=== PATIENT | female | born 1960 | race African-American/Black ===

== ENCOUNTER 2020-01-19 11:22 | Observation (INO) ==
[2020-01-19] MEDS ORDERED: NS 1,000 ML IV PRN (11:42)
[2020-01-19 11:59] LABS: BASO# 0.03 X1000 (0.0-0.2); BASO% 0.3 % (0.0-0.8); EOS# 0.18 X1000 (0.0-0.7); EOS% 1.9 % (0.0-10.0); HEMATOCRIT 36.3 % (37.0-47.0); HEMOGLOBIN 11.9 g/dL (12.0-16.0); IMM GRAN# 0.01 X1000 (0.0-0.04); IMM GRAN% 0.1 % (0.0-0.5); LYMPH# 2.67 X1000 (1.2-3.4); LYMPH% 27.8 % (20.5-51.1); MCH 26.3 PG (27-31); MCHC 32.8 g/dL (33-37); MCV 80.1 FL (81-99); MONO# 0.52 X1000 (0.11-0.59); MONO% 5.4 % (1.7-9.3); MPV 12.2 FL (7.4-10.4); NEUT% 64.5 % (42.2-75.2); PLT 267 X1000 (130-400); RBC 4.53 XMIL (4.2-5.4); RDW 13.1 % (11.5-14.5); WBC 9.61 X1000 (4.8-10.8)
[2020-01-19 12:13] LABS: INR 0.9; PROTIME 12.6 Seconds (11.0-16.0)
[2020-01-19 12:14] LABS: PTT 23.7 Seconds (22.3-41.8)
--- NOTE | 2020-01-19 12:38 | Diag Imaging Result Doc PS360 ---
EXAM: CT HEAD W/O CONTRAST - 01/19/2020 HISTORY: altered mental status TECHNIQUE: CT head without contrast COMPARISON: 08/14/2019 FINDINGS: There is no evidence of intracranial hemorrhage, mass effect, midline shift, or hydrocephalus. There is stable slight ventricular asymmetry compatible congenital variant. There is no evidence of infarct, although acute infarcts may not be immediately visible. There is no evidence of skull fracture. Visualized portions of paranasal sinuses and mastoid air cells appear clear. There is incomplete bony union noted at the midline posterior arch of C1 which is stable and consistent with congenital variant/anomaly. IMPRESSION: No visible acute intracranial abnormality. No hemorrhage or mass effect. This exam was performed using automated exposure control, adjustment of mA or kV according to patient size, and/or use of iterative reconstruction technique. Electronically signed by Murali Cesar 01/19/2020 12:36 PM
[2020-01-19 14:45] LABS: URINE SOURCE CLEAN CATCH
[2020-01-19 14:47] LABS: BILIRUBIN URINE NEGATIVE (NEGATIVE); BLOOD URINE NEGATIVE (NEGATIVE); COLOR YELLOW; GLUCOSE URINE TRACE mg/dL (NEGATIVE); KETONE URINE NEGATIVE (NEGATIVE); LEUKOCYTES URINE NEGATIVE (NEGATIVE); NITRITE URINE NEGATIVE (NEGATIVE); PH URINE 5.5; PROTEIN URINE 50 mg/dL (NEGATIVE); SP GRAVITY URINE 1.014; TURBIDITY URINE CLEAR (CLEAR); UROBILINOGEN URINE NORMAL (NORMAL)
[2020-01-19 14:49] LABS: UR EPITHELIAL CELLS <10 /HPF (<10); URINE BACTERIA 4+ /HPF; URINE RBC <10 /HPF (<10); URINE WBC <10 /HPF (<10)
[2020-01-19] MEDS ORDERED: CATAPRES PO ONE (14:53)
[2020-01-19 14:56] LABS: AGAP 18; ALBUMIN 4.6 g/dL (3.5-5.0); ALKALINE PHOSPHATASE 77 U/L (32-104); BUN 17 mg/dL (8-22); CALCIUM 10.4 mg/dL (8.8-10.2); CHLORIDE 97 mmol/L (98-107); COSMO 281; CREATININE 0.9 mg/dL (0.5-0.9); ESTIMATED GFR > 60; GLUCOSE 272 mg/dL (70-104); GOT 17 U/L (10-30); GPT 13 U/L (10-36); POTASSIUM 4.6 mmol/L (3.5-5.1); SODIUM 135 mmol/L (136-145); TCO2 21 mmol/L (25-35); TOTAL PROTEIN 8.7 g/dL (6.3-8.3)
[2020-01-19 15:05] LABS: UR AMPHETAMINES QUAL NONE DETECTED (NONE DETECT); UR BARBITUATES QUAL NONE DETECTED (NONE DETECT); UR BENZODIAZEPIN QUAL NONE DETECTED (NONE DETECT); UR CANNABINOIDS QUAL NONE DETECTED (NONE DETECT); UR COCAINE QUAL NONE DETECTED (NONE DETECT); UR METHADONE QUAL NONE DETECTED (NONE DETECT); UR METHAMPHETAMINE QUAL NONE DETECTED (NONE DETECT); UR OPIATES QUAL NONE DETECTED (NONE DETECT); UR OXYCODONE QUAL NONE DETECTED (NONE DETECT); UR PCP QUAL NONE DETECTED (NONE DETECT); UR PROPOXYPHENE QUAL NONE DETECTED (NONE DETECT); UR TCA QUAL NONE DETECTED (NONE DETECT)
--- NOTE | 2020-01-19 15:46 | PROVIDER DOCUMENTATION ---
This chart was entered by Ayleen Green Scribmike, acting as scribe for Ny Osorio MD. HPI-General Adult - General Chief Complaint: B/P Problems Stated Complaint: BLOOD SUGAR, SENT BY SOIL SPECIALIST Time Seen by Provider: 01/19/20 11:37 Source: patient Allergies/Adverse Reactions: Patient Allergies Allergy/AdvReac Type Severity Reaction Status Date / Time No Known Allergies Allergy Verified 01/19/20 11:41 Home Medications: Home Medication List Medication Instructions Recorded Confirmed Last Taken Type Hydroxyzine [Atarax] 25 mg PO TID PRN PRN #30 tab 08/14/19 01/19/20 Unknown Rx Amlodipine Besylate/Benazepril 1 cap PO DAILY 01/19/20 01/19/20 Unknown History [Amlodipine-Benazepril 10-40 mg] Carvedilol 1 tab PO BID 01/19/20 01/19/20 Unknown History Metformin HCl 1 tab PO BID 01/19/20 01/19/20 Unknown History Pravastatin Sodium 1 tab PO QPM 01/19/20 01/19/20 Unknown History - History of Present Illness -Gen Adult Nature of Presenting Problems: Pt is a 59 yobf sent by supervisor electronics inspection to ED with c/o confusion and pain in right leg. Pt denies headache or chest pain. Pt has hx of diabetes and HTN. Pt is alert but slow to respond and nontoxic in appearance. Location of Pain/Injury: reports: lower extremity (right leg), other (confusion about recent events) Pain Radiation: reports: no radiation Quality of Pain: reports: dull Severity: reports: mild Onset/Duration: reports: abrupt, this morning Timing: reports: still present Context/Activities at Onset: reports: light activity Modifying Factors: improves with: nothing Associated Symptoms: denies: back/neck pain, chest pain, cough, dizziness, fever/chills, headaches, nausea, shortness of breath, syncope, weakness Similar Symptoms Previously?: No Recently seen or treated by another doctor?: No Review of Systems - Adult - REVIEW OF SYSTEMS - ADULT Constitutional: denies: chills, fever Eyes: reports: no symptoms reported Ears, Nose, Mouth & Throat: reports: no symptoms reported Cardiovascular: denies: chest pain, syncope Respiratory: denies: cough, shortness of breath Gastrointestinal: denies: diarrhea, nausea, vomiting Genitourinary: reports: no symptoms reported Musculoskeletal: reports: bone pain (right leg) Integumentary: reports: no symptoms reported Neurological: reports: other (confusion) Psychiatric: reports: no symptoms reported Endocrine: reports: no symptoms reported Hematologic/Lymphatic: reports: no symptoms reported Allergic/Immunologic: reports: no symptoms reported All Other Systems: Reviewed and Negative Past History - Adult - PAST MEDICAL HISTORY-ADULT Review of Records: reports: Old Records Reviewed, Nursing Assessment Review, Medications Reviewed, Social history reviewed & non-contributory. Major Childhood Illnesses: reports: denies history Cardiovascular: reports: HTN Respiratory: reports: denies history Gastrointestinal: reports: denies history Obstetrical/Gynecological: reports: denies history Genitourinary: reports: denies history Musculoskeletal: reports: denies history Neurological: reports: denies history Endocrine/Immune: reports: Diabetes Other Conditions: reports: denies history - PRIOR SURGERIES/PROCEDURES Surgical/Procedure History: reports: BTL - IMMUNIZATION STATUS Childhood Immunizations: See Nurse Assessment Flu Vaccine: See Nurse Assessment - FAMILY HISTORY Family History: reviewed, not pertinent - SOCIAL HISTORY Smoking: denies Substance Use: denies Living Situation: family Physical Exam-General - PHYSICAL EXAM-ADULT Initial Vital Signs Reviewed: Yes - CONSTITUTIONAL General Appearance: alert, no apparent distress, slow to respond - EYES Eyes: PERRL/EOMI, pink conjunctivae - HEAD, EARS, NOSE, MOUTH & THROAT HENMT: normocephalic/atraumatic, moist mucous membranes - NECK Neck: non-tender, full range of motion, supple - RESPIRATORY Respiratory: chest non-tender, lungs clear, normal breath sounds, no respiratory distress - CARDIOVASCULAR Cardiovascular: normal peripheral pulses, regular rate, rhythm - GASTROINTESTINAL (ABDOMEN) Abdominal Exam: non tender, soft - LYMPHATIC Lymphatic: no adenopathy - MUSCULOSKELETAL Back Exam: normal inspection, no CVA tenderness, no vertebral tenderness Extremity: normal range of motion, non-tender, normal gait, no pedal edema, no calf tenderness - SKIN Integumentary: normal color, normal turgor, warm/dry - PSYCHIATRIC Psych/Mental Status: normal thought content, normal thought process, oriented x 3 Progress - PLAN OF CARE/RESULTS Progress/Plan/Lab Results: Vital Signs - 8 hr 01/19/20 11:28 Temperature 98.1 F Pulse Rate 83 Respiratory Rate 20 Blood Pressure 194/67 O2 Sat by Pulse Oximetry 97 Laboratory Results - last 24 hr 01/19/20 11:28 POC Glucose 282 H Orders Category Date Time Status FSBS [Finger Stick Blood Sugar (ED)] DIRECTED Care 01/19/20 11:28 Active Result Diagrams: 01/19/20 11:53 01/19/20 14:14 - REASSESSMENT Reassessment #1 Time Reassessed: 15:36 Reassessment Comment: at bedside discussing POC - EKG 1 Time of EKG reading by physician:: 11:40 EKG Read and Signed by:: Ny Osorio EKG Interpretation (*Must complete 3 of following elements*): Abnormal Rate: 85 Rhythm: NSR [place]: normal QRS: normal Comments: Possible Anterior infarct, age undetermined - CT/MRI 1 CT Study: Head Impression: See EMR Report ([facility] - [address] [place] [address] [place], [place] [id number] [facility] - [address] [place] [id number] Department of Imaging Patient: PAULIE RICKS Date: 01/19/20MR#: [id number] : 1960DM Status: REG ERAcct#: [id number] Age/Sex: 59/FRoom/Bed: Loc: P.ED Ordering Physician: Ny Osorio MD Family Physician: Hernan Petty MD Reason for Procedure: altered mental status Signed EXAM: CT HEAD W/O CONTRAST - 01/19/2020 HISTORY: altered mental status TECHNIQUE: CT head without contrast COMPARISON: 08/14/2019 FINDINGS: There is no evidence of intracranial hemorrhage, mass effect, midline shift, or hydrocephalus. There is stable slight ventricular asymmetry compatible congenital variant. There is no evidence of infarct, although acute infarcts may not be immediately visible. There is no evidence of skull fracture. Visualized portions of paranasal sinuses and mastoid air cells appear clear. There is incomplete bony union noted at the midline posterior arch of C1 which is stable and consistent with congenital variant/anomaly. IMPRESSION: No visible acute intracranial abnormality. No hemorrhage or mass effect. This exam was performed using automated exposure control, adjustment of mA or kV according to patient size, and/or use of iterative reconstruction technique. Electronically signed by Murali Cesar 01/19/2020 12:36 PM 01/19/20 1236 Interpreting Physician: Murali Cesar MD Dictated Date/Time: 01/19/20 1230 cc: Ny Osorio MD; Hernan Petty MD) - CONSULTS/PCP/HOSPITALIST Notification #1 *Consult/PCP/Hospitalist*: Dr. Urieb Time Discussed: 15:40 Consult Disposition: Admit (for observation) Departure - Departure Date of Disposition Decision: 01/19/20 Time of Disposition Decision: 15:45 DIAGNOSIS: Altered mental status Disposition: ADMITTED INPATIENT 09 Certified Medical Emergency: Emergent Condition: Good Referrals and Follow-Ups: Hernan Petty MD [Primary Care Provider] - - Critical Care Note This patient required my direct & personal management of CC.: No Attestation - Physician/ YANA Attestation Patient care was provided by Advanced Practice Provider:: No The physician spent face to face time with patient:: Yes Advanced Practice Provider documentation review:: Supervising physician onsite and consulted in the evaluation and care of this patient. The physician did have a face to face encounter with the patient. This chart was documented by the indicated scribe, (Ayleen Green, Miguel) and accurately reflects the services I performed and decisions made by me, Ny Osoiro MD, as attested by the provider's signature.
[2020-01-19 15:59] LABS: CALCIUM 10.3 mg/dL (8.8-10.2); PHOSPHORUS 4.1 mg/dL (2.7-4.5)
[2020-01-19] MEDS ORDERED: ASPIRIN PO ONE (16:10)
--- NOTE | 2020-01-19 16:40 | HISTORY AND PHYSICAL ---
PRIMARY CARE PHYSICIAN: Dr. Petty. CHIEF COMPLAINT: Sent to the emergency room by her shipyard painting supervisor after she complained of confusion and pain in her right leg. 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 Was sent to the ER by her shipyard painting supervisor with complaints of confusion and pain in her right leg. She is alert and awake and is able to tell me her name, but unable to tell me her date of or where she is. She has some garbled speech at times, nonsensical at time. Denied any headache or chest pain. Workup showed on arrival a blood pressure of 194/67. CT of the head showed no visible acute intracranial abnormality. No hemorrhage or mass effect. Laboratory data was fairly unremarkable. Urine drug screen was negative. So we are going to admit her for further evaluation and treatment. PAST MEDICAL HISTORY: Hypertension, hyperlipidemia, diabetes, history of a TIA. PAST SURGICAL HISTORY: Bilateral tubal ligation. SOCIAL HISTORY: She resides with family. Again, she works in the dietary department here at [employer] and denies any tobacco, alcohol, or illicit drug use. ALLERGIES: She has no known drug allergies. HOME MEDICATIONS: We will obtain a current list, reconcile, review, and restart as appropriate. We will place an order for nursing to update and confirm home medications. LABORATORY DATA: Showed a white blood cell count of 9.61, hemoglobin 11.9, hematocrit 36.3, platelets 267,000. PT and INR of 12.6 and 0.90. Sodium of 135, potassium 4.6, chloride 97, CO2 21, BUN of 17, creatinine 0.9, glucose 272, calcium of 10.3. Urinalysis was negative except for 4+ bacteria. Urine drug screen was negative. CT of the head showed no visible acute intracranial abnormality. No hemorrhage or mass effect. REVIEW OF SYSTEMS: Unable to obtain a clear review of systems. She was sent by her house furnishings supervisor due to confusion and some complaints earlier pain in her right leg. Denied headache, chest pain on arrival. PHYSICAL EXAMINATION: VITAL SIGNS: On arrival she had a temperature of 98.1 degrees, pulse 83, respirations 20, blood pressure 194/67. Currently blood pressure is down to 155/78. She is saturating 97% on room air. GENERAL: This is a 59-year-old female lying in the bed, unable to answer all questions appropriately. She has some garbled speech, nonsensical at times. HENT: Normocephalic, atraumatic. Normal ENT inspection. Oropharynx and nares are clear. EYES: Pupils are equal, round, reactive to light and accommodation. Extraocular movements are intact. NECK: Normal inspection. Normal range of motion. LUNGS: Clear to auscultation bilaterally with equal lung expansion and chest wall movement. HEART: Regular rate and rhythm. No murmurs, rubs, or gallops. ABDOMEN: Soft, nontender, nondistended. Bowel sounds are present x4 quadrants. MUSCULOSKELETAL: Within normal limits. Normal inspection. Normal range of motion. NEUROLOGICAL: Unable to perform a complete neuro exam due to patient's inability to participate, but does not appear to have any facial drooping or motor weakness at this time. ASSESSMENT: 1. Altered mental status. 2. Transient ischemic attack versus cerebrovascular accident. 3. Hypertension. 4. Diabetes type 2. PLAN: She will be admitted to the medical unit, placed on telemetry. We will hold her n.p.o. at this time, until she has a bedside swallowing study. Again, we do not see any facial drooping, but she does have some nonsensical speech, garbled at times. We will place on pattern blood sugars with sliding scale insulin. In the a.m. we will obtain an MRI of the brain without contrast, an echocardiogram, carotid Doppler. Will continue home medications once identified as appropriate. She does need to receive an aspirin 81 mg p.o. x1 now and continue that daily. We will check a CBC, BMP, and a lipid profile in the a.m. We are going to allow for little permissive hypertension at this time in case this was a stroke and will evaluate in the a.m. Further orders after seen by attending. Dictated by CLAU Diaz for Isaac Ca MD Addendum: Patient seen and examined by myself. Agree with CLAU note. It reflects my assessment and plan. Patient is being admitted to hospital for encephalopathy. Considering her acute onset I am still suspecting an stroke so will order an MRI brain for tomorrow. Will do neurochecks q4hrs and monitor patient closely. Will check HbA1c as well. cc: CLAU Diaz MD Dr. Reddy MTDD
[2020-01-19] MEDS ORDERED: ZOFRAN IV PRN (17:16)
[2020-01-19] MEDS ORDERED: ATARAX PO PRN (17:16)
--- NOTE | 2020-01-19 17:32 | EKG Report ---
Test Performed on : 01/19/2020 11:37:27 AM Test Reason : MD ORDER Blood Pressure : / mmHG Vent. Rate : 085 BPM Atrial Rate : 085 BPM P-R Int : 150 ms QRS Dur : 064 ms QT Int : 366 ms P-R-T Axes : 075 026 022 degrees QTc Int : 435 ms Normal sinus rhythm. Possible Anterior infarct (cited on or before 14-AUG-2019) Abnormal ECG When compared with ECG of 14-AUG-2019 18:41, No significant change was found Unconfirmed Result
[2020-01-19] MEDS: COREG PO SCH (20:30)
[2020-01-19] MEDS: HUMALOG SUBQ SCH (20:50)
[2020-01-19] MEDS ORDERED: PRAVACHOL PO SCH (21:00)
[2020-01-20 05:32] LABS: AGAP 11; BUN 13 mg/dL (8-22); CALCIUM 9.4 mg/dL (8.8-10.2); CHLORIDE 104 mmol/L (98-107); COSMO 285; CREATININE 0.7 mg/dL (0.5-0.9); ESTIMATED GFR > 60; GLUCOSE 189 mg/dL (70-104); POTASSIUM 4.1 mmol/L (3.5-5.1); SODIUM 140 mmol/L (136-145); TCO2 26 mmol/L (25-35)
[2020-01-20] MEDS: HUMALOG SUBQ SCH ×2 (06:14→12:19)
[2020-01-20] MEDS ORDERED: LOTREL 5/20 MG PO SCH (09:00)
[2020-01-20] MEDS: LOTENSIN PO SCH (09:09)
[2020-01-20] MEDS: NORVASC PO SCH (09:09)
[2020-01-20] MEDS: ASPIRIN PO SCH (09:09)
[2020-01-20] MEDS: COREG PO SCH ×2 (09:09→20:24)
--- NOTE | 2020-01-20 10:52 | Diag Imaging Result Doc PS360 ---
EXAM: MRI BRAIN W/O CONTRAST - 01/19/2020 HISTORY: TIA vs CVA TECHNIQUE: MRI brain without contrast. No contrast administered per request the referring provider. COMPARISON: 01/19/2020 CT head without contrast FINDINGS: There is a 1.4 cm area of restricted diffusion at the left anterior thalamus region on the diffusion-weighted images. This is consistent with acute lacunar infarct. There are no other areas of restricted diffusion. There are mild chronic microvascular ischemic changes. There is no evidence of intracranial hemorrhage, mass effect, midline shift, or hydrocephalus. IMPRESSION: 1.4 cm acute lacunar infarct at left anterior thalamus region. This report was discussed with Elle Kwon on 01/20/2020 at 10:48 AM and was readback. Electronically signed by Murali Cesar 01/20/2020 10:49 AM
--- NOTE | 2020-01-20 13:16 | PROGRESS NOTE ---
DATE: 01/20/2020 SUBJECTIVE: The patient reports feeling fine. Yesterday, she was having some headaches, but today, she is feeling much better, a little bit more oriented today. OBJECTIVE: Vital Signs: Temperature 98.1 degrees, heart rate 70, respiratory rate 18, blood pressure 121/66, O2 saturation 99% on room air. General: This is a 59-year-old, female, lying in bed in no acute distress. Cardiovascular: S1, S2 heard. No murmurs, gallops, or rubs. Regular rate and rhythm. Respiratory: Clear bilaterally to auscultation. No work of breathing or using accessory muscles. Abdomen: Soft, nontender to palpation. Bowel sounds present. No organomegaly. Extremities: No clubbing, cyanosis, or edema. Peripheral pulses present in both legs. Neurologic: Alert and oriented x3. Moves all 4 extremities. LABORATORY DATA: BMP today is okay with glucose of 189. Cholesterol 223. ASSESSMENT: 1. Acute lacunar stroke. 2. Hypertension. 3. Diabetes mellitus type 2. PLAN: The patient came to the hospital because she was confused, and we found out that she has a lacunar stroke. This is basically because of noncompliance that the patient recognized, so the patient definitely is strongly encouraged to take her medication as she is supposed to. Will change pravastatin to atorvastatin. Will continue with sliding scale insulin for diabetes, and work on physical therapy and occupational therapy. If the patient is feeling better and not requiring any major physical therapy recommendation, will discharge this patient home tomorrow. cc: Isaac Ca MD
[2020-01-20 14:11] LABS: HEMOGLOBIN A1C 11.7 % (4.8-6.0)
[2020-01-20] MEDS: HUMALOG (PARKWAY) SUBQ SCH ×2 (17:38→20:24)
[2020-01-20 21:00] LABS: BASO# 0.03 X1000 (0.0-0.2); BASO% 0.3 % (0.0-0.8); EOS# 0.37 X1000 (0.0-0.7); EOS% 4.3 % (0.0-10.0); HEMATOCRIT 34.2 % (37.0-47.0); HEMOGLOBIN 11.1 g/dL (12.0-16.0); LYMPH# 2.72 X1000 (1.2-3.4); LYMPH% 31.7 % (20.5-51.1); MCH 26.7 PG (27-31); MCHC 32.5 g/dL (33-37); MCV 82.4 FL (81-99); MONO# 0.54 X1000 (0.11-0.59); MONO% 6.3 % (1.7-9.3); MPV 12.7 FL (7.4-10.4); NEUT# 4.92 X1000 (1.4-6.5); NEUT% 57.4 % (42.2-75.2); PLT 248 X1000 (130-400); RBC 4.15 XMIL (4.2-5.4); RDW 13.6 % (11.5-14.5); WBC 8.58 X1000 (4.8-10.8)
[2020-01-20] MEDS ORDERED: LIPITOR PO SCH (21:00)
--- NOTE | 2020-01-20 23:29 | ECHO REPORT ---
ORDER DATE: 01/20/2020 MEASUREMENTS: Septal thickness 1.1. Left ventricular internal diameter in diastole 4.0. Posterior wall thickness 1.1. Left ventricular internal diameter in systole 2.5. Left atrium 3.6. SUMMARY: 1. Adequate quality study. 2. Aortic valve is trileaflet and opens normally on 2-dimensional images. Peak gradient across aortic valve is 12 mmHg. There is very mild aortic regurgitation. Mitral, tricuspid, and pulmonic valves are without evidence of structural abnormality with very mild mitral regurgitation and trace tricuspid regurgitation. Aortic root is normal in size. 3. Normal left ventricular chamber size with upper normal wall thickness demonstrated. Estimated left ejection fraction is approximately 70%. There are no regional wall motion abnormalities. Left atrium, right atrium, right ventricle are normal in size with normal right ventricular systolic function. 4. No pericardial effusion. 5. Appearance of inferior vena cava suggests normal central venous pressure. 6. Incidental note is made of solitary gallstone, measuring approximately 2.2 cm x 1.6 cm. CONCLUSIONS: 1. Very mild aortic regurgitation. 2. Very mild mitral regurgitation. 3. Estimated left ejection fraction approximately 70%. 4. Incidental note is made of solitary gallstone, as described. cc: MD Elle Eller CRNP
[2020-01-21] MEDS: HUMALOG (PARKWAY) SUBQ SCH ×2 (06:14→13:26)
[2020-01-21 06:21] LABS: AGAP 11; ALBUMIN 3.7 g/dL (3.5-5.0); BUN 16 mg/dL (8-22); CALCIUM 9.4 mg/dL (8.8-10.2); CHLORIDE 104 mmol/L (98-107); COSMO 285; CREATININE 0.7 mg/dL (0.5-0.9); ESTIMATED GFR > 60; GLUCOSE 178 mg/dL (70-104); PHOSPHORUS 4.7 mg/dL (2.7-4.5); POTASSIUM 4.2 mmol/L (3.5-5.1); SODIUM 140 mmol/L (136-145); TCO2 25 mmol/L (25-35)
--- NOTE | 2020-01-21 06:30 | Vascular Study Report ---
EXAM: Carotid Ultrasound HISTORY: TIA vs CVA TECHNIQUE: Carotid Doppler ultrasound COMPARISON: None. FINDINGS: Right: There is a 1.3 x 1.5 cm nodule in the right thyroid. Interval thickening in the common carotid artery. No occlusion or stenosis. No plaque in the bulb. The peak systolic velocity in the internal carotid artery is 61 cm/s. The ICA/CCA ratio 0.70. Antegrade vertebral flow. Left: There is intimal thickening in the common carotid artery. No occlusion or stenosis. Noncalcified plaque in the bulb. Peak systolic velocity measures 219 cm/s. The ICA/CCA ratio is 2.78. IMPRESSION: 1.Stenosis in the proximal left internal carotid artery of between 60 and 79% 2.No occlusion or stenosis on the right 3.Right thyroid nodule Electronically signed by Nilay Garcia 01/21/2020 6:28 AM
[2020-01-21] MEDS: LOTENSIN PO SCH (10:20)
[2020-01-21] MEDS: COREG PO SCH (10:21)
[2020-01-21] MEDS: NORVASC PO SCH (10:21)
[2020-01-21] MEDS: ASPIRIN PO SCH (10:21)
[2020-01-21 11:54] VITALS: BP 136/61
--- NOTE | 2020-01-21 12:22 | DISCHARGE SUMMARY ---
ADMISSION DATE: 01/19/2020 DISCHARGE DATE: 01/21/2020 PRIMARY CARE PHYSICIAN: Dr. Petty. ADMISSION DIAGNOSES: 1. Altered mental status. 2. Transient ischemic attack versus cerebrovascular accident. 3. Hypertension. 4. Diabetes type 2. DISCHARGE DIAGNOSES: 1. An acute lacunar stroke. 2. Hypertension. 3. Diabetes type 2. 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 When she arrived, she was alert and awake and was able to tell me her name, but unable to tell me her date of or where she was. Her speech was garbled and nonsensical at times. Her CT showed no visible acute intracranial abnormality, no hemorrhage or mass effect. She was admitted. We did a brain MRI that showed a 1.4 cm acute lacunar infarct at the left anterior thalamus region. We did a carotid Doppler study that showed stenosis in the proximal left internal carotid artery between 60 to 79 percent. No occlusion or stenosis on the right and a right thyroid nodule. Echocardiogram showed an ejection fraction of 70%. She has not been compliant with her home medications, and we have discussed this at length with her. Started her on aspirin 81 mg p.o. daily. Continued her atorvastatin. We allowed for some permissive hypertension initially. Blood pressure is 160/71. This morning she will restart her home medications. It is felt that she was evaluated by physical therapy and occupational therapy and can continue treatment on an outpatient basis. So, it is felt that she can safely be discharged home. DISCHARGE MEDICATIONS: Include aspirin 81 mg p.o. daily, atorvastatin 40 mg p.o. at bedtime, Coreg 25 mg p.o. b.i.d., hydroxyzine 25 mg p.o. t.i.d. p.r.n., amlodipine/benazepril 10/40 one p.o. daily, Lantus SoloSTAR 15 units subcutaneous daily, metformin 850 mg p.o. b.i.d. FOLLOWUP: She will need to follow up with her primary care physician and call their office for an appointment. She also needs to follow up with general surgeon, vascular surgeon to follow up on her left internal carotid artery stenosis for further intervention. She will call their office for an appointment also. TIME SPENT: This a 35 minute discharge. Dictated by CLAU Diaz for Isaac Ca MD Addendum: Patient seen and examined by myself. Agree with CLAU note. It reflects my assessment and plan. Patient is being discharged in stable condition . Will be seen by PCP in a week. She will have outpatient PT as well. cc: CLAU Diaz MD Jagan Reddy, MD Dr. Walker MTDD
== END 2020-01-21 15:00 | disposition home or self-care (01) ==
LOC: P.ED 11:22 → INTOOBSV 11:23 → P.MEDSURG 16:42
PROVIDERS: ATTEND Internal Medicine